=== PATIENT | female | born 1935 | race Native Hawaiian/Other Pacific Islander ===

== ENCOUNTER 2016-10-10 19:38 | Emergency (ER) | payer OTHER ==
[~2016-10-10] VITALS: Ht 157.5 cm; Wt 52.2 kg
[2016-10-10] MEDS ORDERED: ALEN70TA45 PO (20:03)
[2016-10-10] MEDS ORDERED: GABA-534 PO (20:03)
[2016-10-10] MEDS ORDERED: TRIA15CR2 TP (20:03)
[2016-10-10] MEDS ORDERED: NORT10CA PO (20:03)
[2016-10-10] MEDS ORDERED: MYCO500T PO (20:03)
[2016-10-10] MEDS ORDERED: SIMV40TA5 PO (20:03)
[2016-10-10] MEDS ORDERED: HYDR25TA4 PO (20:03)
--- NOTE | 2016-10-10 20:14 | NUR ---
blood drawn by lab,2l 0.9 ns infusing, moniotor shows nsr. cxr and ekg done.
[2016-10-10] MEDS ORDERED: IV NORMAL SALINE 1000 ML BAG IV ONE (20:15)
[2016-10-10] MEDS ORDERED: IOHEXOL 300MG/ML 100 ML INFUS..BTL ONE (20:22)
[2016-10-10 20:26] LABS: HEMATOCRIT 40.9 % (37.0-47.0); HEMOGLOBIN 13.3 g/dL (12.0-16.0); MEAN CORPUSCULAR HEMOGLOBIN 29.5 uug (27.0-31.0); MEAN CORPUSCULAR HGB CONC 33 g/dL (32.0-37.0); MEAN CORPUSCULAR VOLUME 90.6 fL (81.0-99.0); PLATELET COUNT (AUTO) 220 K/uL (150-450); RED BLOOD CELL COUNT(AUTO) 4.51 MIL/uL (4.20-5.40); RED CELL DISTRIBUTION WIDTH 12.9 % (11.5-14.5); WHITE BLOOD COUNT (AUTO) 6.7 K/uL (4.0-11.2)
[2016-10-10 20:40] LABS: ALBUMIN 4.1 g/dL (3.4-5.0); BILIRUBIN,DIRECT 0.2 mg/dL (0.0-0.2); BILIRUBIN,TOTAL 0.7 mg/dL (0.2-1.0); CALCIUM 9.1 mg/dL (8.5-10.1); CREATININE 0.8 mg/dL (0.6-1.3); TOTAL PROTEIN, SERUM 7.4 g/dL (6.4-8.2)
[2016-10-10 20:42] LABS: TROPONIN I < 0.017 ng/mL (0.00-0.056)
[2016-10-10 20:47] LABS: LACTIC ACID 1.4 mmol/L (0.4-2.0); POTASSIUM 2.6 mmol/L (3.5-5.1)
[2016-10-10 20:52] LABS: BAND % (MANUAL) 2 % (0-10); EOSINOPHILS % (MANUAL) 1 % (0-8); LYMPHOCYTES % (MANUAL) 21 % (20-40); MONOCYTES % (MANUAL) 4 % (2-10); NEUTROPHILS % (MANUAL) 72 % (42-75); PLATELET ESTIMATE ADEQUATE
[2016-10-10] MEDS ORDERED: ONDANSETRON IV *ER 4 MG/2 ML VIAL IV ONE (21:30)
[2016-10-10] MEDS ORDERED: POTASSIUM CHLORIDE 20 MEQ TAB.PRT.SR PO ONE (21:30)
[2016-10-10] MEDS ORDERED: POTASSIUM CHLORIDE 20 MEQ TAB.PRT.SR ONE (21:44)
[2016-10-10] MEDS ORDERED: ONDANSETRON 4 MG/2 ML VIAL ONE (21:44)
[2016-10-10 21:56] LABS: *BILIRUBIN,URIN NEGATIVE (NEGATIVE); *BLOOD, URINE NEGATIVE (NEGATIVE); *CLARITY,URINE CLEAR (CLEAR); *KETONES,URINE NEGATIVE (NEGATIVE); *PROTEIN,URINE NEGATIVE (NEGATIVE); *UROBILINOGEN,URINE 0.2 E.U./dl (NORMAL); LEUKOCYTE ESTERASE ,URINE NEGATIVE (NEGATIVE); NITRITE, URINE NEGATIVE (NEGATIVE); PH,URINE 6.5 (5.0-8.0); UGLUCOSE NEGATIVE (NEGATIVE)
[2016-10-10 22:10] LABS: *COLOR,URINE LIGHT YELLOW (YELLOW); MUCUS,URINE FEW /LPF (0-FEW); RBC,URINE 0-3 /HPF (0-3); WBC,URINE 0-3 /HPF (0-3)
--- NOTE | 2016-10-10 22:51 | NUR ---
eprp called, dr kassie reyes to talk to waldo jacobo. spoke to fatoumata.
--- NOTE | 2016-10-10 23:08 | NUR ---
DR KU SPOKE TO AQUILES JOSE.
--- NOTE | 2016-10-11 00:35 | NUR ---
PT RESTING, AWAITING FOR AMBULANCE FOR TRANSFER TO [facility]. PT'S [facility] SIGNED CONSENT. MONITOR SHOWS NSR,STABLE VITALS.
--- NOTE | 2016-10-11 00:48 | NUR ---
[facility] CALLED TO INFORM THAT THERE WAS A DELAY IN THE TRANSPORT AND THAT THE AMBULANCE SHOULD ARRIVE BY [phone].
--- NOTE | 2016-10-11 02:03 | NUR ---
[facility] REPORT TO DUANE NICHOLE, COPY OF CHART,CD COPY OF CT SCAN,XRAYS GIVEN TO ANAT LARSON. PT TOOK ALL BELONGINGS, TRANSFER ACKNOWLEDGEMENT SINED EARLIER.
== END 2016-10-11 02:07 | disposition short-term general hospital (02) ==
LOC: ER 19:38
DX: R55 Syncope and collapse (principal); D69.0 Allergic purpura
CPT/HCPCS: 36415; 71010; 74177; 80048; 80076; 81001; 83605; 83690; 84484; 85025; 85730; 87040 ×2; 87086; 93005; 96361; 96374; 99285; A4663; J2405; J7030; Q9967; 70030-TC